=== PATIENT | female | born 1950 | race Caucasian/White ===

== ENCOUNTER 2022-02-14 18:00 | Emergency (ER) | payer MEDICARE, SELFPAY ==
[2022-02-14 18:25] VITALS: BP 178/102; PULSE 86; RESP 18; TEMP 36.4; O2SAT 100
[2022-02-14 18:26] VITALS: BP 178/102; PULSE 86; RESP 18; TEMP 36.4; O2SAT 100
--- NOTE | 2022-02-14 18:33 | ED.URI ---
HPI - URI/Sore Throat General Chief Complaint: Upper Respiratory Infection Stated Complaint: cough,congestion Time Seen by Provider: 02/14/22 18:41 Source: patient and RN notes reviewed Mode of arrival: ambulatory Limitations: no limitations History of Present Illness HPI Narrative: 71-year-old female presents to the [facility] with 2 weeks of coughing congestion, over the last 2 days has been getting worse. Week and half ago her grand children were brought to the ER and diagnosed with bronchitis. Patient denies any fevers. States that she has low shortness of breath and chest tightness only when she coughs. No chest pain or tightness just sitting there. Has taken Xyzal, no other treatment prior to arrival denies any past medical or surgical history Related Data Home Medications Medication Instructions Recorded Confirmed omeprazole 20 mg capsule,delayed mg 02/14/22 release Allergies Allergy/AdvReac Type Severity Reaction Status Date / Time No Known Allergies Allergy Verified 02/14/22 18:25 Review of Systems Review of Systems: All systems reviewed & are unremarkable except as noted in HPI and below Constitutional: Constitutional: Reports no additional constitutional complaints Eyes: Eyes: Reports no additional eye complaints ENT: Reports system reviewed and no additional complaints, except as documented Cardiovascular: Cardiovascular: Reports no additional cardiovascular complaints, Denies chest pain and Denies dyspnea Respiratory: Respiratory: Reports as per HPI, Reports chest congestion, Reports cough, Denies dyspnea and Denies wheezing Gastrointestinal: Gastrointestinal: Reports no additional gastrointestinal complaints, Denies abdominal pain, Denies nausea and Denies vomiting Musculoskeletal: Musculoskeletal: Reports no additional musculoskeletal complaints Integumentary/Breasts: Skin/Breast: Reports system reviewed and no additional complaints, except as docu Neurologic: Reports system reviewed and no additional complaints, except as documented Psychiatric: Psychiatric: Reports no additional psychiatric complaints Allergic/Immunologic: Allergic/Immunologic: Reports no additional allergic/immunologic complaints PMFSH Past Medical History Medical History (Updated 02/14/22 @ 18:52 by Romy Hill APRN) H/O gastroesophageal reflux (GERD) Vitamin D deficiency Comments At the time of my signature, I reviewed and agree with the nursing past medical, surgical, social, and family history. There is no relevant family history pertinent to the patient complaint. Exam Const: General: cooperative, healthy appearing, comfortable, no acute distress, well developed, alert, average body habitus and well nourished Nutritional Appearance: average body habitus and well nourished Orientation/consciousness: patient oriented x3 Limitations: no limitations HENMT: Head: normal to inspection Ears: hearing grossly normal bilaterally and external ears normal Face/Nose/Sinus: Normal external nose present, Normal nares present, Normal nasal mucous membranes and turbinates present and normal facial exam Face and sinus: normal facial exam Mouth: Yes Normal oral and palatal mucosa present, Yes lip normal and Yes moist mucous membranes Throat: posterior oropharynx normal and uvula midline Eyes: General: appearance normal, both eyes and all related structures Alignment and Position: alignment normal Periorbital: periorbital findings normal Conjunctivae: conjunctivae normal Pupils: Equal, round and reactive pupils present EOM: EOMs intact bilaterally Neck: Neck: normal visual inspection, full ROM, no lymphadenopathy and no meningeal signs Chest: Chest palpation & inspection: normal inspection of the chest Resp: Effort & Inspection: normal respiratory effort and able to speak in complete sentences Auscultation: clear to auscultation bilaterally, no crackles, no rales, no rhonchi and no wheezes Other: str
== END 2022-02-14 19:11 | disposition home or self-care (01) ==
PROVIDERS: Emergency Provider Nurse Practitioner
DX: J40 Bronchitis, not specified as acute or chronic (principal); K21.9 Gastro-esophageal reflux disease without esophagitis
CPT/HCPCS: 99203; G0463

== ENCOUNTER 2022-03-05 10:26 | Emergency (ER) | payer MEDICARE, SELFPAY ==
--- NOTE | ~2022-03-05 | XR_ITS ---
Left Hand Technique: PA, oblique, and lateral views were obtained. Clinical History: Injury Findings: No acute fracture or dislocation is seen. Minimal degenerative change of the first CMC join t noted. There is mild degenerative change of the second and third DIP joints, and the fourth PIP maribeth nt. Soft tissues are unremarkable. Impression: No fracture or dislocation. Minimal degenerative change of the first CMC joint. Additional degenerative changes of the interphala ngeal joints, as detailed above. Reviewed, dictated and finalized at location M. O PROGRAM CHECKER Impression: No fracture or dislocation. Minimal degenerative change of the first CMC joint. Additional degenerative chika nges of the interphalangeal joints, as detailed above.
--- NOTE | ~2022-03-05 | XR_ITS ---
Right Hand Technique: PA, oblique, and lateral views were obtained. Clinical History: Injury Findings: No acute fracture or dislocation is seen. Osseous alignment is anatomic. Minimal degenerati ve changes at the first CMC joint. Soft tissues are unremarkable. Impression: No fracture or dislocation. Minimal degenerative change of the first CMC joint. Reviewed, dictated and finalized at [facility]. [employer] POWER OPERATOR Impression: No fracture or dislocation. Minimal degenerative change of the first CMC joint.
--- NOTE | ~2022-03-05 | XR_ITS ---
Right wrist Technique: PA, oblique, lateral, and ulnar deviation views were obtained. Clinical History: Trauma Findings: No acute fracture or dislocation is seen. Osseous alignment is anatomic. Joint spaces are p reserved. Soft tissues are unremarkable. Impression: Unremarkable right wrist radiographs. Reviewed, dictated and finalized at location . S CONTRACTS ANALYST Impression: Unremarkable right wrist radiographs.
[2022-03-05 11:07] VITALS: BP 154/97; PULSE 93; RESP 18; TEMP 36.6; O2SAT 97
--- NOTE | 2022-03-05 11:23 | ED.GENADULT ---
HPI - General Adult General Chief complaint: Extremity Injury, Upper Stated complaint: rt hand injury/fall History of Present Illness HPI narrative: 71 y/o female. PMHx Dupuytren deformity BUE, GERD. Presents to [facility] with acute complaints of a fall, resulting in bilateral hand and RT wrist injury. 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 -Denies prodromal deficits. -Increased pain to sites since fall. -No additional injury identified. Related Data Home Medications Medication Instructions Recorded Confirmed omeprazole 20 mg capsule,delayed 20 mg PO DAILY 02/14/22 03/05/22 release aspirin 81 mg capsule 81 mg PO DAILY 03/05/22 03/05/22 Allergies Allergy/AdvReac Type Severity Reaction Status Date / Time No Known Allergies Allergy Verified 03/05/22 11:11 Review of Systems Review of Systems: MUSCULOSKELETAL: Fall, Bilateral hand pain, RT wrist injury. NEUROLOGIC: Denies numbness, or focal weakness. All other systems have been reviewed: Unless noted remaining ROS Negative. [facility] Past Medical History Medical History H/O gastroesophageal reflux (GERD) Vitamin D deficiency Exam Narrative: GENERAL: This is a well-nourished, well-developed adult, in no apparent distress. HEAD: normocephalic, atraumatic. EYES: Sclera clear/white. EARS: External ears normal. NOSE: External nose normal. THROAT: Mucous membranes moist. NECK: Neck supple, non-tender, no injury. CARDIOVASCULAR: Regular rate and rhythm. Strong pulses BUE, all sites. RESPIRATORY: Clear to auscultation. Breath sounds equal bilaterally. No wheezes, rales, or rhonchi. No chest wall deformity or trauma. GASTROINTESTINAL: Abdomen soft, non-tender, nondistended. Bowel sounds are active. No guarding. No signs of acute or traumatic abdomen. SKIN: superficial abrasions overlying LT 2-4 metacarpals and RT pinky digit. No deep tissue disturbance. Bleeding controlled. MUSC: NEURO: Alert, active, and age appropriate. Good sensation and discrimination BUE, all sites. Course Course Level of Care: Express Care Visit Vital Signs Vital signs: Vital Signs Temperature 36.6 C 03/05/22 11:07 Pulse Rate 93 03/05/22 11:07 Respiratory Rate 18 03/05/22 11:07 Blood Pressure 154/97 H 03/05/22 11:07 Pulse Oximetry 97 03/05/22 11:07 Oxygen Delivery Room Air 03/05/22 11:07 Temperature 36.6 C 03/05/22 11:07 Pulse Rate 93 03/05/22 11:07 Respiratory Rate 18 03/05/22 11:07 Blood Pressure 154/97 H 03/05/22 11:07 Pulse Oximetry 97 03/05/22 11:07 Oxygen Delivery Room Air 03/05/22 11:07 Medical Decision Making MDM Narrative Medical decision making narrative: -Bilateral hand injury s/p fall (LT 2/3/4th metacarpal, RT 4th pinky digit and wrist). -No neurovascular deficits. -Chronic Dupuytren disease. -Soft tissue superficial abrasions covered w/SLY and site care provided by clinic RN. -The patient reports UTD Tetanus. -No other injury relayed. -I do not currently have access to radiology imaging here at [facility]. Thus, client will be transferred to local [place] location for Xray: R/O Bony disturbance. -She will go by personal vehicle and agrees. -I will review her radiology films in the system, and collaborate [facility] to complete her care continuity. ADDITIONAL MDM: -Xray LT Hand: No acute findings. -Xray RT Hand: No acute findings. -Xray RT Wrist: No acute findings. DC to home stable. -RICE regimen. -DANTE to RT wrist until healed & support. -Tylenol/NSAID PRN. -SLY to abrasions and localized wound care until healed. -PCP F/U 1WK. Consider additional OP imaging or PT therapies w/persistence. Differential Diagnosis Differential Diagnosis: Differential Diagnosis: Consideration of the following conditions may be warranted for the presenting problem, they are not
--- NOTE | 2022-03-05 12:39 | PC.NURSE ---
Pt arrived from [facility] for Xray. Rn to Rn report received from Janie Oro
== END 2022-03-05 13:08 | disposition home or self-care (01) ==
PROVIDERS: Emergency Provider Nurse Practitioner Adult Health
DX: S60.512A Abrasion of left hand, initial encounter (principal); S60.416A Abrasion of right little finger, initial encounter; S63.501A Unspecified sprain of right wrist, initial encounter; W18.09XA Striking against other object with subsequent fall, initial encounter; K21.9 Gastro-esophageal reflux disease without esophagitis; Z79.82 Long term (current) use of aspirin
CPT/HCPCS: 73110; 73130; 99214; G0463